=== PATIENT | male | born 1950 | race African-American/Black ===

== ENCOUNTER 2019-08-26 09:57 | Inpatient (IN) | payer OTHER ==
[2019-08-26] MEDS ORDERED: ASPI81TA85 PO (10:17)
[2019-08-26] MEDS ORDERED: LISI40TA PO (10:17)
[2019-08-26] MEDS ORDERED: LIPI20TA PO (10:17)
[2019-08-26] MEDS ORDERED: PLAV1TAB2 PO (10:17)
--- NOTE | 2019-08-26 10:33 | REP ---
Portable chest x-ray: Single view. History: Syncope. Findings: The lungs are symmetrically aerated and clear. The pleural angles are sharp. Heart is not enlarged. Pulmonary vasculature is not increased. Monitoring electrodes are seen. Impression: No active disease. Electronically Signed by Rafael Pablo MD 08/26/2019 10:25 A
--- NOTE | 2019-08-26 10:34 | REP ---
CT brain without contrast: History: Syncope. Findings: Digital preliminary cable installer repairer helper radiograph is unremarkable. Bone window settings demonstrate an intact bony calvarium. No skull fractures seen. There is an area of linear increased density in the left frontal scalp consistent with contusion or fibrosis. There is no evidence of intracranial hemorrhage. Vascular calcifications noted in the distal internal carotid and distal vertebral arteries. There are punctate calcifications in the basal ganglia. No cortical infarct is seen. No mass, extra-axial fluid collection, or midline shift is seen. Impression: Vascular calcification. Minimal diffuse atrophy. No acute intracranial abnormality. Electronically Signed by Rafael Pablo MD 08/26/2019 10:27 A
[2019-08-26 10:54] LABS: VENOUS BASE EXCESS -2.4 (-2.0-2.0); VENOUS HCO3 25.3 MEQ/L (23.0-27.0); VENOUS O2 SATURATION 52.4 % (60.0-80.0); VENOUS PARTIAL PRESSURE CO2 56.8 mmHg (38.0-50.0); VENOUS PARTIAL PRESSURE O2 34.5 mmHg (30.0-50.0); VENOUS PH 7.266 UNITS (7.330-7.430); VENOUS STANDARD HCO3 21.5 MEQ/L
[2019-08-26 11:24] LABS: BASO % 0.6 % (0.0-1.0); EOS # 0.3 10^3/uL (0.0-0.5); EOS % 6.6 % (0.0-3.0); HEMATOCRIT 37.6 % (42.0-52.0); HEMOGLOBIN 12.3 g/dl (13.5-17.5); LYMPH # 0.6 10^3/uL (1.5-5.0); LYMPH % 12.5 % (24.0-44.0); MEAN CORPUSCULAR HEMOGLOBIN 28.3 pg (27.0-33.0); MEAN CORPUSCULAR HGB CONC 32.7 g/dl (32.0-36.5); MEAN CORPUSCULAR VOLUME 86.4 fl (80.0-96.0); MONO # 0.4 10^3/uL (0.0-0.8); MONO % 7.8 % (0.0-5.0); NEUTROPHILS # 3.6 10^3/uL (1.5-8.5); NEUTROPHILS % 72.1 % (36.0-66.0); PLATELET COUNT, AUTOMATED 135 10^3/uL (150-450); RED BLOOD COUNT 4.35 10^6/uL (4.30-6.10)
[2019-08-26 11:27] LABS: BLOOD UREA NITROGEN 21 MG/DL (7-18); CALCIUM LEVEL 8.8 MG/DL (8.8-10.2); CARBON DIOXIDE LEVEL 28 MEQ/L (21-32); CHLORIDE LEVEL 110 MEQ/L (98-107); CK-MB VALUE MASS 1.1 NG/ML (<3.6); CPK CREATINE PHOSPHOKINASE 95 U/L (39-308); CREATININE FOR GFR 1.21 MG/DL (0.70-1.30); GLOMERULAR FILTRATION RATE > 60.0 (>49); GLUCOSE, FASTING 127 MG/DL (70-100); MAGNESIUM LEVEL 2.2 MG/DL (1.8-2.4); MB/CK RELATIVE INDEX 1.16 (< OR =4); POTASSIUM SERUM 4.1 MEQ/L (3.5-5.1); SODIUM LEVEL 143 MEQ/L (136-145); TROPONIN I 0.02 NG/ML (< 0.10)
[2019-08-26 11:35] LABS: INR 1.14; PROTHROMBIN TIME 14.3 SECONDS (11.8-14.0)
[2019-08-26] MEDS ORDERED: ATOR40TA75 PO (12:55)
[2019-08-26] MEDS ORDERED: AZOP0.2S OU (12:57)
[2019-08-26] MEDS ORDERED: COMB0.2S OU (12:57)
[2019-08-26] MEDS ORDERED: XALA0.007 OU (12:57)
[2019-08-26 13:43] LABS: FERRITIN 96 NG/ML (26-388); IRON (FE) 78 UG/DL (65-175); PERCENT SATURATION 30.6 % (19.7-50.0); TOTAL IRON BINDING CAPACITY 255 UG/DL (250-450)
[2019-08-26 13:51] LABS: FOLATE 16.9 NG/ML (>5.4); VITAMIN B12 LEVEL 547 PG/ML (247-911)
[2019-08-26 14:45] VITALS: BP_SYST 160; BP_SYST 193; BP_DIAS 80; BP_DIAS 84
--- NOTE | 2019-08-26 15:29 | REP ---
Unilateral right lower extremity arterial Doppler ultrasound: History: Peripheral vascular disease. Evaluate for occlusion. Right leg pain. No comparison imaging. Findings: There appears to be a stent in the proximal superficial femoral artery through the popliteal. Likely multiple stents. Eighth 3:1 velocity stenosis is seen proximally in the superficial femoral artery. Decreased flow throughout the leg with no flow observed in the distal anterior tibial artery. Slow flow was observed in the distal posterior tibial artery. Abnormal monophasic waveforms are noted throughout. Ankle brachial index is low on the right may measured at 0.6. Right lower extremity arterial Doppler velocity chart: CF A 76 cm/S Profunda 103 Proximal SFA 41/129 Mid SFA 37 Distal SFA 39 Popliteal 66 Proximal AT A 10 Tibioperoneal trunk 51 Proximal CLERICAL OFFICE WORKER 43 Distal CLERICAL OFFICE WORKER 19 Distal AT A occluded Electronically Signed by Rafael Pablo MD 08/26/2019 03:21 P
[2019-08-26 15:48] LABS: CK-MB VALUE MASS 1.7 NG/ML (<3.6); CPK CREATINE PHOSPHOKINASE 101 U/L (39-308); MB/CK RELATIVE INDEX 1.68 (< OR =4); TROPONIN I < 0.02 NG/ML (< 0.10)
--- NOTE | 2019-08-26 17:26 | ECGEPIP ---
[facility] - ED Test Date: 2019-08-26 Pat Name: AVTAR REYNOLDS Department: Room: - Gender: Male Security Screener: : [id number] Requested By: Gracie Mcguire Order Number: [id number] Reading MD: Gracie Mcguire Measurements Intervals [place] Rate: 56 P: 24 SD: 206 QRS: 29 QRSD: 101 T: 177 QT: 477 QTc: 463 Interpretive Statements SINUS BRADYCARDIA WITH MARKED SINUS ARRHYTHMIA INFERIOR MYOCARDIAL INFARCTION, OF INDETERMINATE AGE WITH POSTERIOR EXTENSION MODERATE T-WAVE ABNORMALITY, CONSIDER LATERAL ISCHEMIA PROLONGED QTC CLINICAL CORRELATION NO PRIOR Electronically Signed on 08-26-2019 17:25:57 EDT by Gracie Mcguire
[2019-08-26 18:19] LABS: CPK CREATINE PHOSPHOKINASE 92 U/L (39-308); MB/CK RELATIVE INDEX 1.09 (< OR =4); TROPONIN I < 0.02 NG/ML (< 0.10)
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
[2019-08-26] MEDS: BRINZOLAMIDE 1 % OPHTH SUSP (AZOPT) 10ML OU SCH (21:01)
[2019-08-26] MEDS: LATANOPROST 0.005% OPHTH SOLN 2.5 ML OU SCH (21:01)
[2019-08-26] MEDS: ATORVASTATIN 20 MG TAB PO SCH (21:02)
[2019-08-26 22:00] VITALS: BP 162/90
[2019-08-27 06:00] VITALS: BP 142/88
[2019-08-27 06:26] LABS: CHOLESTEROL RISK RATIO 2.882 (<5)
[2019-08-27] MEDS: CLOPIDOGREL 75 MG TAB PO SCH (09:04)
[2019-08-27] MEDS: ASPIRIN 81 MG ENTERIC TAB PO SCH (09:04)
[2019-08-27] MEDS: BRINZOLAMIDE 1 % OPHTH SUSP (AZOPT) 10ML OU SCH ×2 (09:04→21:15)
[2019-08-27] MEDS: lisinopriL 40 MG TAB PO SCH (09:05)
--- NOTE | 2019-08-27 10:15 | IPNPDOC ---
Text Note Date of Service The patient was seen on 08/27/19. NOTE Subjective: Patient seen and examined at bedside. No acute overnight events reported. Patient describes RLE pain with walking, started about one year ago. States he had a stent placed about 2 years ago, and bypass surgery with his LLE. Denies any other medical complaints. Objective: General: NAD, lying comfortably in bed HEENT: NC/AT Lungs: CTA B/L Heart: +S1S2, RRR Abd: soft, obese, NT Ext: chronic venous stasis changes, RLE mild tenderness to palpation A/P: 68 yo male, currently incarcerated, PMHx CAD s/p PCI/stent >2 years ago, PAD s/p LLE bypass, RLE stent, admitted for syncopal episode. #syncope - likely vasovagal - echocardiogram pending - continue telemetry - noted bradycardia - appears to be relatively asymptomatic #HTN #HLD #CAD #PAD - vascular not available - outpatient follow up for claudication - arterial studies, doppler studies VS,Sandy, I+O VS, Fishbone, I+O Laboratory Tests 08/26/19 10:41 Vital Signs Date Time Temp Pulse Resp B/P (MAP) Pulse Ox O2 Delivery O2 Flow Rate FiO2 08/27/19 06:00 97.3 54 18 142/88 (106) 99 08/26/19 14:45 Room Air I&O- Last 24 Hours up to 6 AM 08/27/19 06:00 Intake Total 1110 ml Output Total 0 ml Balance 1110 ml MARY MCNEIL MD Aug 27, 2019 10:15
--- NOTE | 2019-08-27 11:21 | REP ---
Duplex extremity venous ultrasound: Right lower extremity. History: Evaluate for DVT. Findings: The deep veins are anechoic and fully compressible from the groin to the popliteal fossa in the right lower extremity. Color flow imaging is homogeneous. Spectral Doppler interrogation demonstrates intact respiratory variation in flow and normal manual augmentation of flow. There is no evidence of deep vein thrombosis. Impression: Negative right lower extremity duplex venous ultrasound. No evidence of deep vein thrombosis. Electronically Signed by Rafael Pablo MD 08/27/2019 11:12 A
[2019-08-27 14:00] VITALS: BP 160/81
[2019-08-27] MEDS: ATORVASTATIN 20 MG TAB PO SCH (21:14)
[2019-08-27] MEDS: LATANOPROST 0.005% OPHTH SOLN 2.5 ML OU SCH (21:15)
[2019-08-27 22:00] VITALS: BP 160/80
--- NOTE | 2019-08-27 22:01 | ECHO ---
DATE OF PROCEDURE: 08/27/2019 REFERRING PHYSICIAN: Dr. Ortega INDICATION: Syncope. Height 183 cm, weight 96 kg. DIMENSIONS: IVS: 1.7 LV: 4.8 LVPW: 1.6 LA: 4.1 Aorta: 3.5 IVC: 1.2 Mitral E wave velocity: 46 A wave: 83 E prime septal: 3.0 E prime lateral: 4.7 FINDINGS: The study is of fair technical quality. The patient is in sinus rhythm. Left ventricle has normal size and normal contractility, estimated left ventricular ejection fraction (LVEF) 65-70%. Moderate left ventricular hypertrophy that is global is noted. Right ventricle was relatively poorly seen but grossly appears normal. Left atrium is at least moderately enlarged. The right atrium is probably normal size. Aortic valve is sclerotic, but there are three cusps and preserved mobility. There are also prominent degenerative abnormalities of mitral valve with mitral annular calcifications. Leaflets seem to have preserved mobility. Tricuspid valve is normal. Limited views of pulmonic valve also appear normal. No pericardial effusion is noted. Inferior vena cava is of relatively small caliber and collapses with inspiration indicative of normal or low central venous pressure. Aortic root is normal. Aortic arch and abdominal aorta were not well visualized. Doppler interrogation of aortic valve reveals no significant stenosis or insufficiency. There is mild mitral insufficiency and mild tricuspid insufficiency. Calculated pulmonary artery pressure is on upper limits of normal values. Pulmonic valve is functionally competent. Mitral inflow pattern and tissue Doppler imaging of mitral annulus revealed grade 1 diastolic dysfunction. CONCLUSIONS: 1. Study is of acceptable technical quality, the patient is in sinus rhythm. 2. Normal left ventricular (LV) size with moderate left ventricular hypertrophy (LVH) and hyperdynamic LV systolic function. Grade 1 diastolic dysfunction. 3. Aortic sclerosis but no stenosis. 4. Prominent mitral annular calcifications but no stenosis, only mild insufficiency. 5. Likely normal central venous pressure and normal pulmonary artery pressure. COMMENT: Subacute bacterial endocarditis (SBE) prophylaxis is not recommended. Study does not provide explanation for syncopal event but is suggestive of hypertensive heart disease.
[2019-08-28 06:00] VITALS: BP 144/86
[2019-08-28 06:46] LABS: HEMATOCRIT 34.4 % (42.0-52.0); HEMOGLOBIN 11.3 g/dl (13.5-17.5); MEAN CORPUSCULAR HGB CONC 32.8 g/dl (32.0-36.5); MEAN CORPUSCULAR VOLUME 85.1 fl (80.0-96.0); PLATELET COUNT, AUTOMATED 118 10^3/uL (150-450); RED BLOOD COUNT 4.04 10^6/uL (4.30-6.10); WHITE BLOOD COUNT 4.3 10^3/uL (4.0-10.0)
[2019-08-28 07:05] LABS: BLOOD UREA NITROGEN 19 MG/DL (7-18); CARBON DIOXIDE LEVEL 25 MEQ/L (21-32); CHLORIDE LEVEL 113 MEQ/L (98-107); CREATININE FOR GFR 1.16 MG/DL (0.70-1.30); GLOMERULAR FILTRATION RATE > 60.0 (>49); GLUCOSE, FASTING 98 MG/DL (70-100); POTASSIUM SERUM 4.1 MEQ/L (3.5-5.1); SODIUM LEVEL 144 MEQ/L (136-145)
[2019-08-28] MEDS: lisinopriL 40 MG TAB PO SCH (09:47)
[2019-08-28] MEDS: CLOPIDOGREL 75 MG TAB PO SCH (09:47)
[2019-08-28] MEDS: ASPIRIN 81 MG ENTERIC TAB PO SCH (09:47)
[2019-08-28 09:48] VITALS: BP 168/85
[2019-08-28] MEDS: BRINZOLAMIDE 1 % OPHTH SUSP (AZOPT) 10ML OU SCH (09:48)
--- NOTE | 2019-08-28 12:08 | DS.PDOC ---
Discharge Summary General Date of Admission Aug 27, 2019 at 10:08 Date of Discharge 08/28/19 Discharge Summary PROCEDURES PERFORMED DURING STAY: [None]. DISCHARGE DIAGNOSES: #syncope - likely vasovagal #sinus rhonda/1st degree AV block #HTN #HLD #CAD s/p PCI #PAD s/p RLE stenting, LLE byhpass COMPLICATIONS/CHIEF COMPLAINT: Syncope. HISTORY OF PRESENT ILLNESS: 68-year-old gentleman who is a resident of the local shelter facility. He has a past medical history of coronary artery disease with percutaneous intervention with stent placed greater than 2 years ago. He also has a history of left lower extremity arterial bypass and peripheral arterial disease, hypertension, hyperlipidemia. RLE s/p stent placement, LLE s/p bypass surgery. Patient had been at the shelter house cleaning up some pots, when he states that he did not feel well. He cannot characterize it beyond that. He subsequently went to sit down and lost consciousness for an unspecified period of time. It is not clear if this was witnessed or not. He denies experiencing any palpitations, any shortness of breath. He did not have any prodromal symptoms other than he did not feel well. He was brought to the emergency room, where he underwent a CT scan of his head without contrast, which did not show any acute intracranial events. His EKG showed normal sinus rhythm with premature atrial contraction (PAC). Chest x-ray was unremarkable, as were his preliminary labs. Patient denies having any fevers, chills, or productive cough of late. He was brought into the hospital for further evaluation of syncope and admitted to the hospitalist service to an observation status. HOSPITAL COURSE: Patient was monitored on telemetry which showed sinus rhonda/1st degree AV block. Echocardiogram was obtained which revealed grade 1 diastolic dysfunction. Hospital stay was otherwise unremarkable, and patient had no further episodes of dizziness of syncope. He did complain of RLE claudication, which appears to have been ongoing for at least one year. Vascular surgery services unavailable, and given the duration of his symptoms, and current safety concerns, recommending outpatient follow up, or further evaluation by his PCP. DISCHARGE MEDICATIONS: Please see below. ALLERGIES: Please see below. PHYSICAL EXAMINATION ON DISCHARGE: VITAL SIGNS: Please see below. GENERAL: NAD, lying comfortably in bed HEENT: NC/AT, EOMI Lungs: CTA B/L Heart: +S1S2, RRR Abd: soft, NT, +BS Ext: no edema LABORATORY DATA: Please see below. ACTIVITY: [As tolerated]. DIET: 2 gram sodium, heart healthy DISPOSITION: [facility] ITEMS TO FOLLOWUP ON ON OUTPATIENT: 1. Follow up with PCP in 3-5 days. 2. Monitor blood pressure. 3. Follow up with vascular surgery or PCP. DISCHARGE CONDITION: [Stable]. TIME SPENT ON DISCHARGE: 35 minutes. Vital Signs/I&Os Vital Signs Date Time Temp Pulse Resp B/P (MAP) Pulse Ox O2 Delivery O2 Flow Rate FiO2 08/28/19 09:48 62 168/85 (112) 08/28/19 06:00 97.6 20 98 08/26/19 14:45 Room Air I&O- Last 24 Hours up to 6 AM 08/28/19 06:00 Intake Total 1350 ml Output Total 2650 ml Balance -1300 ml Laboratory Data Labs 24H Laboratory Tests 2 08/28/19 05:53: Nucleated Red Blood Cells % (auto) 0.0, Anion Gap 6L, Glomerular Filtration Rate > 60.0, Calcium Level 9.0 CBC/BMP Laboratory Tests 08/28/19 05:53 Discharge Medications Scheduled Aspirin (Aspir 81) 81 Mg Tablet.dr, 81 MG PO DAILY, (Reported) Atorvastatin Calcium (Atorvastatin Calcium) 40 Mg Tablet, 40 MG PO QHS, (Reported) Brimonidine Tartrate/Timolol (Combigan 0.2%-0.5% Eye Drops) 5 Ml Drops, 1 DROP OU BID, (Reported) Brinzolamide (Azopt) 1% 10ML Drops.susp, 2 DROP OU BID, (Reported) Clopidogrel Bisulfate (Plavix) 75 Mg Tablet, 75 MG PO DAILY, (Reported) Latanoprost (Xalatan) 0.005% 2.5ML Drops, 1 DROP OU QHS, (Reported) Lisinopril (Lisinopril) 40 Mg Tablet, 40 MG PO DAILY, (Reported) Allergies Coded Allergies: No Known Drug Allergies (Verified Allergy, Unknown, 08/26/19) MARY MCNEIL MD Aug 28, 2019 12:08
== END 2019-08-28 13:02 | disposition home or self-care (01) | DRG 204 ==
LOC: EDBD 09:57 → M ED 09:57 → M ED INP 09:58 → ENRESERVTM 12:42 → ENRESERVDT 12:42 → M MSPAV 14:30 → OBSVTOIN 08-27 10:08
PROVIDERS: ADMIT Internal Medicine; ATTEND Internal Medicine
DX: R55 Syncope and collapse (principal); I10 Essential (primary) hypertension; I25.10 Atherosclerotic heart disease of native coronary artery without angina pectoris; Z98.61 Coronary angioplasty status; Z95.820 Peripheral vascular angioplasty status with implants and grafts; I73.9 Peripheral vascular disease, unspecified; E78.5 Hyperlipidemia, unspecified; Z79.82 Long term (current) use of aspirin; Z79.01 Long term (current) use of anticoagulants; Z79.899 Other long term (current) drug therapy; H40.9 Unspecified glaucoma; Z87.891 Personal history of nicotine dependence; D64.89 Other specified anemias; M79.661 Pain in right lower leg; R00.1 Bradycardia, unspecified; I44.0 Atrioventricular block, first degree